=== PATIENT | female | born 1975 | race African-American/Black ===

== ENCOUNTER → 2021-12-22 | Outpatient (CLI) | payer OTHER ==
[~2021-12-22] MED LIST: PANTOPRAZOLE SO40 MG PO; PHENERGAN SUPP25 MG PO; diclofenac PO; tylenol #3
== END ==
LOC: LAB 08:00 → EDSTATUS 12-25 11:00
PROVIDERS: ATTEND Orthopaedic Surgery
DX: Z01.812 Encounter for preprocedural laboratory examination (principal); M94.262 Chondromalacia, left knee; M67.462 Ganglion, left knee
CPT/HCPCS: 0223U; 36415